=== PATIENT | male | born 1945 | race Caucasian/White ===

== ENCOUNTER 2021-10-25 18:06 | Emergency (ER) | payer MEDICARE, OTHER ==
[2021-10-25 18:17] VITALS: BP 162/72
[2021-10-25] MEDS ORDERED: LIDOCAINE-EPINEPH-TETRACAINE 3 ML SYRINGE TOP STA (18:31)
[2021-10-25] MEDS ORDERED: TETANUS/DIPHTHERIA/PERTUSSIS 0.5 ML SYRINGE IM ONE (18:31)
--- NOTE | 2021-10-25 18:33 | ED Physician Documentation ---
History of Present Illness - Stated complaint Stated Complaint: FALL - Chief complaint Chief Complaint: Trauma Hd/Nk - History obtained from History obtained from: Patient - History of Present Illness Timing: How many hours ago (1) Pain level max: 4 Pain level now: 0 - Additonal information Additional information: Patient is a 76-year-old male who presents to the emergency department after playing pickle ball today and she was going backwards tripped fell and struck his head on the concrete. No loss of consciousness. Does have a small laceration. Unknown last tetanus. No neck or back pain. No numbness or tingling. Does not take any blood thinners. No vomiting. No seizure activity. Review of Systems Constitutional: denies: Fever, Chills GI: denies: Vomiting, Diarrhea Skin: denies: Rash Musculoskeletal: denies: Neck pain, Back pain Neurologic: denies: Focal weakness, Numbness, Confused, LOC PD PAST MEDICAL HISTORY - Past Medical History Past Medical History: Yes Cardiovascular: Hypertension, High cholesterol - Present Medications Home Medications: Ambulatory Orders Medication Instructions Recorded Confirmed Atorvastatin [Lipitor] 10 mg PO DAILY 10/25/21 10/25/21 Lisinopril [Zestril] 40 mg PO DAILY 10/25/21 10/25/21 amLODIPine [Norvasc] 5 mg PO DAILY 10/25/21 10/25/21 hydroCHLOROthiazide [Hydrodiuril] 25 mg PO DAILY 10/25/21 10/25/21 - Allergies Allergies/Adverse Reactions: Allergies Allergy/AdvReac Type Severity Reaction Status Date / Time No Known Drug Allergies Allergy Verified 10/25/21 18:17 - Social History Does the pt have substance abuse?: No - Family History Family history: reports: Non contributory PD ED PE NORMAL - Vitals Vital signs reviewed: Yes - General General: Alert and oriented X 3, No acute distress, Well developed/nourished - HEENT HEENT: PERRL, Moist mucous membranes, Other (2 cm linear laceration to the occiput. No scalp hematomas. No palpable skull fractures. 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, No motor deficit, No sensory deficit, Normal speech Eye Opening: Spontaneous Motor: Obeys Commands Verbal: Oriented GCS Score: 15 - Psych Psych: Normal mood, Normal affect Results - Vitals Vitals: Vital Signs - 24 hr 10/25/21 18:13 Temperature 36.6 C Heart Rate 70 Respiratory 14 Rate Blood Pressure 162/72 H O2 Saturation 99 Oxygen O2 Source Room air - Rads (name of study) Head CT Radiology: Final report received, EMP read contemporaneously, See rad report Cervical spine CT Radiology: Final report received, EMP read contemporaneously, See rad report Procedures - Laceration (location) Occiput Length in cm: 2 Wound type: Linear, Into subcut fat Neurovascular status: Sensory intact, Motor intact, Vascular intact Anesthesia: LET Wound preparation: Irrigated copiously NS Skin layer closure: [place] (3) Other: Patient tolerated well, No complications, Neurovascular intact PD MEDICAL DECISION MAKING - ED course Complexity details: reviewed results, re-evaluated patient, considered differential, d/w patient, d/w family ED course: Laceration was repaired with patricia. Tolerated well. Tdap given. Head CT and cervical spine CT did not show any acute abnormalities. We will have him follow-up with his doctor in 10 days for staple removal. Patient counseled regarding signs and symptoms for which I believe and urgent re-evaluation would be necessary. Patient with good understanding of and agreement to plan and is comfortable going home at this time This document was made in part using voice recognition software. While efforts are made to proofread this document, sound alike and grammatical errors may occur. Departure - Departure Disposition: 01 Home, Self Care Clinical Impression: Scalp laceration Qualifiers: Encounter type: initial encounter Qualified Code(s): S01.01XA - Laceration without foreign body of scalp, initial encounter Closed head injury Qualifiers: Encounter type: initial encounter Qualified Code(s): S09.90XA - Unspecified injury of head, initial encounter Condition: Good Instructions: ED Head Injury Closed, ED Laceration Scalp Stitch Or Stap Follow-Up: Your,doctor in 1 week [Other] Comments: Please follow-up with your doctor in about 10 days for staple removal. Please return if you worsen. There are no acute findings on your head CT or cervical spine CT tonight. Keep the wound clean. Return if you notice redness, swelling or drainage from the wound. You were given a tetanus shot today as well. Discharge Date/Time: 10/25/21 19:44
--- NOTE | 2021-10-25 19:31 | CT Report ---
PROCEDURE: HEAD WO INDICATIONS: fall head/neck injury TECHNIQUE: Noncontrast 4.5 mm thick angled axial sections acquired from the foramen magnum to the vertex. For r adiation dose reduction, the following was used: automated exposure control, adjustment of mA and/or kV according to patient size. COMPARISON: None. FINDINGS: Image quality: Excellent. CSF spaces: Basal cisterns are patent. No extra-axial fluid collections. Ventricles are normal in size and shape. Brain: No midline shift. No intracranial masses or hemorrhage. There is mild cerebral volume loss. There are periventricular white matter chronic small vessel ischemic changes.. Skull and face: Calvarium and visualized facial bones are intact, without suspicious lesions. Sinuses: Bilateral maxillary sinus mucosal thickening. A small air-fluid level in the left maxillary sinus. Mastoids are clear. IMPRESSION: 1. No acute intracranial abnormalities. 2. Cerebral volume loss and periventricular matter and enhancement. A discrete changes. 3. Bilateral maxillary sinus disease. Reviewed by: Gabby Griggs MD on 10/25/2021 7:30 PM PDT Approved by: Gabby Griggs MD on 10/25/2021 7:30 PM PDT Station ID: [id number]
--- NOTE | 2021-10-25 19:34 | CT Report ---
PROCEDURE: CERVICAL SPINE WO INDICATIONS: fall head/neck injury TECHNIQUE: Noncontrast 3 mm thick sections acquired from the skull base to the T4 level. Sagittal and coronal r eformats were then constructed. For radiation dose reduction, the following was used: automated exp osure control, adjustment of mA and/or kV according to patient size. COMPARISON: None. FINDINGS: Image quality: Excellent. Bones: No fractures or dislocations. There is moderate degenerative disc disease at C5-C6. Bilateral facet arthropathy, moderate at C2--C3 on the right and C3-C4 on the left. Visualized superior ribs are intact. Soft tissues: Prevertebral soft tissues are normal in thickness. No paravertebral hematomas. No ap ical pneumothoraces. IMPRESSION: 1. No cervical spine fracture. Reviewed by: Gabby Griggs MD on 10/25/2021 7:32 PM PDT Approved by: Gabby Griggs MD on 10/25/2021 7:32 PM PDT Station ID: [id number]
[2021-10-25] MEDS ORDERED: BACITRACIN ZINC OINT 1 PACKET TOP STA (19:43)
== END 2021-10-25 19:44 | disposition home or self-care (01) ==
LOC: ED 18:06
DX: S01.01XA Laceration without foreign body of scalp, initial encounter (principal); S09.90XA Unspecified injury of head, initial encounter; W01.0XXA Fall on same level from slipping, tripping and stumbling without subsequent striking against object, initial encounter; Y93.73 Activity, racquet and hand sports
CPT/HCPCS: 12001; 90471; 99284